=== PATIENT | male | born 1965 | race Two or more races ===

== ENCOUNTER 2023-07-08 11:08 | Inpatient (IN) | payer BC, SELFPAY ==
[2023-07-08] VITALS (26 sets, daily range): BP systolic 101–140; BP diastolic 72–93; PULSE 104–137; RESP 9–28; TEMP 36.7; O2SAT 93–98; BMI 32.4; BMI 33.2
--- NOTE | 2023-07-08 | CONS_ITS ---
CONSULTATION DATE: 07/08/2023 REASON FOR CONSULTATION: Abdominal pain, back pain, cholecystitis. HISTORY OF PRESENT ILLNESS: Patient is a 57-year-old male with history of hypertension, who has had a long, over one year history of intermittent right sided back pain, which has been treated as a musculoskeletal pain. He recently had worsening of the pain as well as some dark urine and presented to the emergency room for further evaluation. He was noted to have sinus tachycardia in the emergency room, as well as a markedly elevated white blood cell count of 25,700. Workup included abdominal and pelvis CT scan, which revealed evidence of multiple gallstones as well as some mild inflammatory changes and distention of the gallbladder. Subsequently, this was followed with an ultrasound that also revealed distention of the gallbladder and some mild inflammation. No pericholecystic fluid or thickening of the gallbladder wall. He did have a large stone in the neck of gallbladder, as well as multiple stones throughout the gallbladder. He denies any history of nausea or fevers. He has had no jaundice or history of pancreatitis. He has had no previous abdominal surgery. He denies alcohol use or tobacco use. ALLERGIES: Patient has no known drug allergies. MEDICATIONS: Home medications include amlodipine 5 mg daily, baclofen 20 mg b.i.d., lidocaine patch, losartan 100 mg daily and naproxen q. 12 hours p.r.n. PAST SURGICAL HISTORY: Patient denies any previous surgical operations. SOCIAL HISTORY: Denies tobacco use, alcohol use or illicit drug use. FAMILY HISTORY: Noncontributory. REVIEW OF SYSTEMS: Ten system review of systems is negative for recent weight loss or weight gain. Denies increased fatigue or light-headedness. Has had no earache or tinnitus. No sinus congestion. No sore throat or hoarseness. No chest pain, palpitations or syncope. No chronic cough, shortness of breath or hemoptysis. No significant abdominal pain. Some soreness in the right upper quadrant is primarily the right back pain. No diarrhea, constipation or decreased caliber of the stool. No melena, hematochezia or bright red blood per rectum. No dysuria, frequency, urgency or hematuria. No headaches, seizures or tremors. No easy bruising or bleeding. No heat or cold intolerance. No polydipsia, polyphagia or polyuria. PHYSICAL EXAM: VITAL SIGNS: Patient is afebrile. Heart rate is 110 and regular. Respiratory rate is 18. O2 saturation is 93% on room air. GENERAL: In general, he is a well developed, well nourished male, currently in acute distress. HEENT: Normocephalic, atraumatic. Sclerae anicteric. Oral mucosa is slightly dry. NECK: Supple. There is no adenopathy, thyromegaly or JVD. LUNGS: Clear bilaterally. CARDIAC EXAM: Regular rhythm and rate without appreciable murmurs, rubs or gallops. ABDOMEN: Soft. It is non-distended. There are positive bowel sounds. There is some mild tenderness in the right upper quadrant with no peritoneal signs. No masses. No hepatosplenomegaly. No hernias. No CVA tenderness. SKIN: Warm and dry without lesions, rashes or ulcers. NEURO EXAM: Non-focal. Non-lateralizing. Patient is awake, alert, oriented with appropriate affect. Laboratory values, CT and ultrasound reports are as noted in the HPI. These images were personally reviewed. ASSESSMENT: A 57-year-old male with a long history of likely symptomatic cholelithiasis, now with evidence of acute cholecystitis with obstruction of the gallbladder from a large stone. PLAN: The plan is to admit the patient, have him on IV antibiotics, bowel rest and proceed with cholecystectomy tomorrow. The indications, risks, benefits, alternatives of proceeding with laparoscopic cholecystectomy were explained extensively to the patient, including the risks of bleeding, infection, bile duct injury, bowel injury, need for intraoperative cholangiogram, postoperative ERCP, open procedure, blood clot, pulmonary embolus, heart attack, anesthetic complications or need for further surgery. All of his questions were answered. Informed consent was obtained. CC: Tino Castro M.D. KRISTI
--- NOTE | 2023-07-08 11:21 | PC.NURSE ---
Pt has had R flank pain into groin last 2 days.
--- NOTE | 2023-07-08 11:24 | ED.BACK1 ---
HPI - Back Pain/Injury General Chief Complaint: Back Pain/Injury Stated Complaint: BACK PAIN Time Seen by Provider: 07/08/23 11:24 Source: patient and family Mode of arrival: walk-in Limitations: no limitations History of Present Illness HPI Narrative: this patient's here for worsening of his right low flank pain. He said he has been bothered with it for the last year. He gets the pain a couple times a month. It's not a every day situation. He's not had any falls injuries or anything that would exacerbate it. But it did get worse last couple days. He saw a local primary care doctor who put him on a muscle relaxant and a Lidoderm patch. He says the pain does not radiate down the buttock or the leg. He has no problems urinating. No frequency burning or hematuria. No history of kidney stones. He's otherwise healthy. The says the pain is in the right low flank area and rotates she's been radiates up to the scapular area. Does not have any shortness of breath. Related Data Allergies Allergy/AdvReac Type Severity Reaction Status Date / Time No Known Drug Allergies Allergy Verified 07/08/23 11:14 [facility] Social History Smoking status: Never smoker Exam Narrative Exam Narrative: very pleasant stoic gentleman moving about comfortably on the cart. While in the standing position examining his back for the area discomfort as he does not any bruises contusions or any other apparent injury. Heath sign is negative. Examination of chest shows his lungs to be clear with no wheezes rales or rhonchi is no tenderness over the ribs. Examination heart sinus tachycardia with no murmur. Examination abdomen shows some mild tenderness in the right upper quadrant but no peritoneal findings. There is no rebound or rigidity. No tenderness at McBurney's point. Legs do not show any evidence of edema phlebitis or deep vein thrombosis. Skin and integument were normal with no evidence of scleral icterus or jaundice. Neurological examination is normal with very pleasant gentleman here with a female content strategist Constitutional Vital Signs, click to edit/add: Last Vital Signs Temp 98.1 F 07/08/23 11:14 Pulse 137 H 07/08/23 11:14 Resp 16 07/08/23 11:14 BP 140/90 07/08/23 11:14 Pulse Ox 97 07/08/23 11:14 O2 Del Method Room Air 07/08/23 11:14 Course Vital Signs Vital signs: Vital Signs Temperature 98.1 F 07/08/23 11:14 Pulse Rate 137 H 07/08/23 11:14 Respiratory Rate 16 07/08/23 11:14 Blood Pressure 140/90 07/08/23 11:14 Pulse Oximetry 97 07/08/23 11:14 Oxygen Delivery Method Room Air 07/08/23 11:14 Temperature 98.1 F 07/08/23 11:14 Pulse Rate 137 H 07/08/23 11:14 Respiratory Rate 16 07/08/23 11:14 Blood Pressure 140/90 07/08/23 11:14 Pulse Oximetry 97 07/08/23 11:14 Oxygen Delivery Method Room Air 07/08/23 11:14 MDM - Back Pain/Injury MDM Narrative Medical decision making narrative: patient's white blood cell call is substantially elevated. CT scan suggested cholecystitis and subsequent ultrasound confirmed mild inflammatory changes but no obstructive mom them. His total bilirubin is normal and there is no elevation of his liver function tests. I spoke with the on-call surgeon who will consult. I'll now speak to the hospitalist for admission. He previously been given 1 g of Rocephin in the emergency departments. Lab Data Labs: Lab Results 07/08/23 07/08/23 Range/Units 11:35 11:51 WBC 25.7 H (4.0-11.0) 10^3/uL RBC 5.62 (4.70-6.10) 10^6/uL Hgb 16.3 (14.0-18.0) g/dL Hct 47.5 (42.0-54.0) % MCV 84.5 (80.0-94.0) fL MCH 29.0 (25.9-34.0) pg MCHC 34.3 (29.9-35.2) g/dL RDW 14.6 (11.0-15.0) % Plt Count 140 L (150-450) 10^3/uL MPV 12.2 (9.5-13.5) fL Seg Neuts % (Manual) 91.0 Lymphocytes % (Manual) 3.0 L (20.5-60.0) % Monocytes % (Manual) 6.0 (1.7-12.0) % Neutrophils # (Manual) 23.38 H (1.4-6.5) 10^3/uL Lymphocytes # (Manual) 0.77 L (1.20-3.80) 10^3/uL Monocytes # (Manual) 1.54 H (0.30-0.80) 10^3/uL D-Dimer 0.44 (<=0.59) mg/L FEU Sodium 137 (136-145) mmol/L Potassium 3.6 (3.5-5.1) mmol/L Chloride 103 (98-107) mmol/L Carbon Dioxide 30.6 (21.0-32.0) mmol/L Anion Gap 7.0 BUN 14.0 (7.0-18.0) mg/dL Creatinine 1.07 (0.70-1.30) mg/dL Est GFR ( Amer) >60 (>=60) Est GFR (Non-Af Amer) >60 (>=60) BUN/Creatinine Ratio 13.1 Glucose 115 H (74-106) mg/dL Calcium 9.2 (8.5-10.1) mg/dL Total Bilirubin 1.2 H (0.2-1.0) mg/dL AST 13 L (15-37) U/L ALT 36 (16-63) U/L Alkaline Phosphatase 101 (46-116) U/L Troponin I High Sens 24.1 (4.0-76.1) pg/mL NT-Pro-B Natriuret Pep 25.0 (<=900.0) pg/mL Total Protein 7.5 (6.4-8.2) g/dL Albumin 3.8 (3.4-5.0) g/dL Globulin 3.7 g/dL Albumin/Globulin Ratio 1.0 Urine Color Yellow (YELLOW) Urine Clarity Clear (CLEAR) Urine pH 6.5 (5.0-9.0) Ur Specific [place] 1.020 (1.005-1.025) Urine Protein Trace (NEG/TRACE) mg/dL Urine Glucose (UA) Negative (NEGATIVE) mg/dL Urine Ketones Negative (NEGATIVE) mg/dL Urine Occult Blood Negative (NEGATIVE) Urine Nitrite Negative (NEGATIVE) Urine Bilirubin Negative (NEGATIVE) Urine Urobilinogen 1.0 (0.2-1.0) EU/dL Ur Leukocyte Esterase Negative (NEGATIVE) Discharge Plan Discharge Chief Complaint: Back Pain/Injury Clinical Impression: Acalculous cholecystitis Patient Disposition: Admitted as Observation Time of Disposition Decision: 14:23 Referrals: RYLIE MEYER APRN [Primary Care Provider] - 1 week
--- NOTE | 2023-07-08 11:29 | CT_ITS ---
[address] [address] Patient Name: EFRA HOUSE MRN: [id number] date: 1965 Sex: M Assigned Patient Location: ER Current Patient Location: Accession/Order Number: [id number] Exam Date: 07/08/2023 11:40 Report Date: 07/08/2023 12:05 At the request of: EDY PLASCENCIA Procedure: CT abdomen pelvis wo con EXAMINATION: CT abdomen pelvis wo con HISTORY: right flank pain ; increasing right flank and right upper quadrant pain COMPARISON: No relevant comparison available. TECHNIQUE: Axial, Coronal, and Sagittal images were obtained without and/or with IV contrast as indicated by examination type. Dose reduction techniques were achieved by using automated exposure control and/or adjustment of mA and/or kV according to patient size and/or use of iterative reconstruction technique. FINDINGS: LUNG BASES: No visible pulmonary or pleural disease. LIVER: No enlargement, atrophy, suspicious density, or significant focal lesion. BILIARY: Gallbladder is filled with stones, with a 2.1 cm stone within gallbladder neck. Borderline wall thickening and surrounding edema. No abnormal duct dilation. PANCREAS: No lesion, fluid collection, or abnormal duct dilatation. SPLEEN: No enlargement or focal lesion. ADRENALS: No mass or enlargement. KIDNEYS: 2.6 cm complex cyst versus mass projecting laterally from mid body of right kidney. BOWEL/MESENTERY: No visible mass, obstruction, or bowel wall thickening. Normal appendix. AORTA/VASCULAR: No aneurysm or dissection. RETROPERITONEUM: No mass or adenopathy. LYMPH NODES: No adenopathy. URINARY BLADDER: No visible focal wall thickening, lesion, or calculus. PELVIC ORGANS: No visible mass. Pelvic organs appropriate for patient age. ABDOMINAL WALL: Tiny fat filled umbilical hernia without strangulation. BONES: No bony lesion or fracture. OTHER: Negative. CT/CT abdomen pelvis wo con IMPRESSION: 1. Cholelithiasis and suspected mild acute cholecystitis. Consider ultrasound evaluation for verification. 2. Complex 2.6 cm right renal cyst versus mass. Consider follow-up CT abdomen without and with IV contrast to evaluate enhancement characteristics. Alternatively, MRI abdomen could be performed. Electronically authenticated by: MIRTHA MELARA Date: 07/08/2023 12:05
--- NOTE | 2023-07-08 11:58 | XR_ITS ---
The [address] [address] Patient Name: EFRA HOUSE MRN: [id number] date: 1965 Sex: M Assigned Patient Location: ER Current Patient Location: ER Accession/Order Number: [id number] Exam Date: 07/08/2023 12:06 Report Date: 07/08/2023 12:22 At the request of: EDY PLASCENCIA Procedure: XR chest 1V EXAM: XR chest 1V at 1201 hours HISTORY: dyspnea COMPARISON: None. TECHNIQUE: AP upright portable chest x-ray FINDINGS: The heart is near the upper limits of normal in size and the vasculature is not distended. No acute infiltrate, effusion or pneumothorax is identified. The osseous structures are grossly intact. XR/XR chest 1V IMPRESSION: No acute infiltrate or evidence of cardiac decompensation. Direct comparison with a previous study may be helpful in determining the chronicity of these findings. Electronically authenticated by: NANCIE JORDAN Date: 07/08/2023 12:22
--- NOTE | 2023-07-08 11:58 | ECG_ITS ---
The [facility] [place] Test Date: 2023-07-08 Pat Name: EFRA HOUSE Department: Room: - Gender: Male Facilities Engineer: : 1965 Requested By: RYLIE MEYER Order Number: [id number] Reading MD: SPIKE JARA Measurements Intervals [place] Rate: 117 P: 35 NM: 136 QRS: 15 QRSD: 98 T: 0 QT: 318 QTc: 387 Interpretive Statements 1120 Sinus tachycardia 5234 Left ventricular hypertrophy with repolarization abnormality ST changes, can't exclude inferolateral ischemia 9150 abnormal ECG No previous ECG available for comparison Electronically Signed On 07-09-2023 7:02:58 EST by SPIKE JARA
[2023-07-08 12:00] LABS: Bilirubin Urine NEGATIVE (NEGATIVE); Blood Urine NEGATIVE (NEGATIVE); Clarity Urine CLEAR (CLEAR); Color Urine YELLOW (YELLOW); Glucose Urine UA NEGATIVE (NEGATIVE); Ketones Urine NEGATIVE (NEGATIVE); Leukocyte Esterase Urine NEGATIVE (NEGATIVE); Nitrite Urine NEGATIVE (NEGATIVE); Protein Urine TRACE mg/dL (NEG/TRACE); pH Urine 6.5 (5.0-9.0)
[2023-07-08 12:07] LABS: Urine Microscopic Indicated NO
[2023-07-08 12:12] LABS: Alanine Aminotransferase 36 U/L (16-63); Albumin Level 3.8 g/dL (3.4-5.0); Alkaline Phosphatase 101 U/L (46-116); Aspartate Amino Transferase 13 U/L (15-37); BUN Creatinine Ratio 13.1; Bilirubin Total 1.2 mg/dL (0.2-1.0); Calcium 9.2 mg/dL (8.5-10.1); Carbon Dioxide 30.6 mmol/L (21.0-32.0); Chloride 103 mmol/L (98-107); Estimated GFR (African America >60 (>=60); Estimated GFR (Non-African Ame >60 (>=60); Globulin 3.7 g/dL; Glucose 115 mg/dL (74-106); Potassium 3.6 mmol/L (3.5-5.1); Sodium 137 mmol/L (136-145); Total Protein 7.5 g/dL (6.4-8.2)
[2023-07-08 12:19] LABS: Hematocrit 47.5 % (42.0-54.0); Hemoglobin 16.3 g/dL (14.0-18.0); Mean Corpuscular HGB Conc 34.3 g/dL (29.9-35.2); Mean Corpuscular Volume 84.5 fL (80.0-94.0); Mean Platelet Volume 12.2 fL (9.5-13.5); Platelet Count 140 10^3/uL (150-450); Red Blood Count 5.62 10^6/uL (4.70-6.10); Red Cell Distribution Width 14.6 % (11.0-15.0); White Blood Count 25.7 10^3/uL (4.0-11.0)
[2023-07-08 12:20] LABS: Troponin I High Sensitivity 24.1 pg/mL (4.0-76.1)
[2023-07-08 12:22] LABS: D Dimer 0.44 mg/L FEU (<=0.59)
[2023-07-08 12:31] LABS: Lymphocytes Absolute Manual 0.77 10^3/uL (1.20-3.80); Monocytes Absolute Manual 1.54 10^3/uL (0.30-0.80); Segmented Neut Absolute Manual 23.38 10^3/uL (1.4-6.5)
--- NOTE | 2023-07-08 12:44 | US_ITS ---
The [address] [address] Patient Name: EFRA HOUSE MRN: [id number] date: 1965 Sex: M Assigned Patient Location: ER Current Patient Location: ER Accession/Order Number: [id number] Exam Date: 07/08/2023 12:46 Report Date: 07/08/2023 13:43 At the request of: EDY PLASCENCIA Procedure: US right upper quadrant EXAMINATION: US right upper quadrant, 07/08/2023 12:46 PM EST HISTORY: high white blood cell count right upper quadrant p COMPARISON: 07/08/2023 TECHNIQUE: Transabdominal sonography was performed. FINDINGS: Pancreas: Head and body of the pancreas are moderately well seen and appear grossly normal. Tail of the pancreas is obscured due to overlying bowel gas. Liver: Normal size and contour, length approximately 17.2 cm. Increased parenchymal echogenicity likely relates to steatosis in the absence of known liver disease; mild fatty sparing along the gallbladder fossa. Hepatic veins are grossly patent by limited color flow imaging; main portal vein appears patent with normal flow directionality, velocity approximately 39.9 cm/s. Gallbladder: Cholelithiasis and mild gallbladder distention, without significant gallbladder wall thickening; mild pericholecystic inflammation is better appreciated on CT 07/08/2023; no significant pericholecystic fluid. Stone seen in the neck measures approximately 9 mm in greatest diameter. Reportedly negative sonographic [place] sign. Intrahepatic ducts: Normal caliber. Common bile duct: Normal, measures 3 mm. Right kidney: 10.6 x 5.4 x 5.6 cm The kidney is reniform in shape, normal in echotexture, without hydronephrosis. There is a 1.9 x 2.2 x 2.1 cm predominantly cystic cortical lesion about the superior pole right kidney containing a nonspecific focus of intracystic nodularity (image [id number]). IVC: Patent. US/US right upper quadrant IMPRESSION: 1. Cholelithiasis and mild gallbladder distention; while there is no significant gallbladder wall thickening, mild pericholecystic inflammation as seen on recent CT is suspicious for acute cholecystitis. No abnormal biliary dilatation. 2. Right renal cortical lesion contains a nonspecific focus of intracystic nodularity; unclear if this relates to intracystic proteinaceous debris. As per CT exam performed same day, consider follow-up renal mass protocol CT or MRI. 3. Hepatic steatosis. Electronically authenticated by: JUAN PABLO FERRO Date: 07/08/2023 13:43
[2023-07-08] MEDS: CEFTRIAXONE 1,000 MG in 0.9 % SODIUM CHLORIDE 50 ML 100 MG IV (13:28)
--- NOTE | 2023-07-08 17:07 | PC.NURSE ---
dr sailaja singh for consult at this time.
[2023-07-08 17:26] LABS: INR 0.98; Partial Thromboplastin Time 29.6 sec (22.3-36.2); Prothrombin Time 10.4 sec (9.0-11.6)
[2023-07-08 17:30] LABS: Magnesium 1.9 mg/dL (1.8-2.4)
[2023-07-08] MEDS: 0.9 % SODIUM CHLORIDE 1,000 ML 1000 ML IV (17:32)
[2023-07-08] MEDS: PANTOPRAZOLE SODIUM 40 MG VIAL IV (17:35)
--- NOTE | 2023-07-08 17:36 | PM.GSCN ---
History of Present Illness Consult details Consult date: 07/08/23 Requesting physician: Tino Castro Narrative: patient seen/examined/cart and x-ray images reviewed/consult dictated; 57 yo male with htn, long h/o likely biliary colic, now with evidence of cholecystitis, large stone in neck of gallbladder, with distension of GB and inflammation; plan NPO, hydration, IV antibiotics, pain meds as needed; LS cholecystectomy, possible IOC, possible open procedure tomorrow, informed consent obtained. 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) Anxiety ?F41.9 - Anxiety disorder, unspecified (ICD-10) Hypertension ?I10 - Essential (primary) hypertension (ICD-10) Family History (Updated 07/08/23 @ 15:20 by Jael Puga LPN) Father Family history of CHF (congestive heart failure) Family history of diabetes mellitus Family history of hypertension Family history of myocardial infarction Granddaughter Family history of CHF (congestive heart failure) Family history of hypertension Grandmother Family history of cancer Sister Family history of cancer Family history of diabetes mellitus Family history of hypertension Other Family history of COPD (chronic obstructive pulmonary disease) Social History Smoking status: Never smoker Highest level of school completed/degree received: Associate degree: occupational, technical, vocational program Gender Identity: male Meds Home Medications and Allergies Home Medications Medication Instructions Recorded Confirmed Type amlodipine 5 mg tablet 5 mg PO DAILY 07/08/23 07/08/23 History baclofen 20 mg tablet 20 mg PO BID 07/08/23 07/08/23 History lidocaine 5 % topical patch 1 patch topical Q24H PRN pain 07/08/23 07/08/23 History losartan 100 mg tablet 100 mg PO DAILY 07/08/23 07/08/23 History naproxen 500 mg tablet 500 mg PO Q12H PRN pain 07/08/23 07/08/23 History Allergies Allergy/AdvReac Type Severity Reaction Status Date / Time No Known Drug Allergies Allergy Verified 07/08/23 11:14 Exam Constitutional Vital Signs, click to edit/add: Last Vital Signs Temp 98.0 F 07/08/23 15:35 Pulse 110 H 07/08/23 15:35 Resp 16 07/08/23 15:35 BP 134/87 07/08/23 15:35 Pulse Ox 93 L 07/08/23 16:27 O2 Del Method Room Air 07/08/23 16:42 Results Labs Labs: Abnormal lab results 07/08/23 Range/Units 11:51 WBC 25.7 H (4.0-11.0) 10^3/uL Plt Count 140 L (150-450) 10^3/uL Lymphocytes % (Manual) 3.0 L (20.5-60.0) % Neutrophils # (Manual) 23.38 H (1.4-6.5) 10^3/uL Lymphocytes # (Manual) 0.77 L (1.20-3.80) 10^3/uL Monocytes # (Manual) 1.54 H (0.30-0.80) 10^3/uL Glucose 115 H (74-106) mg/dL Total Bilirubin 1.2 H (0.2-1.0) mg/dL AST 13 L (15-37) U/L Diabetes panel 07/08/23 Range/Units 11:51 Sodium 137 (136-145) mmol/L Potassium 3.6 (3.5-5.1) mmol/L Chloride 103 (98-107) mmol/L Carbon Dioxide 30.6 (21.0-32.0) mmol/L BUN 14.0 (7.0-18.0) mg/dL Creatinine 1.07 (0.70-1.30) mg/dL Glucose 115 H (74-106) mg/dL Calcium 9.2 (8.5-10.1) mg/dL AST 13 L (15-37) U/L ALT 36 (16-63) U/L Alkaline Phosphatase 101 (46-116) U/L Total Protein 7.5 (6.4-8.2) g/dL Albumin 3.8 (3.4-5.0) g/dL Calcium panel 07/08/23 Range/Units 11:51 Calcium 9.2 (8.5-10.1) mg/dL Albumin 3.8 (3.4-5.0) g/dL Pituitary panel 07/08/23 Range/Units 11:51 Sodium 137 (136-145) mmol/L Potassium 3.6 (3.5-5.1) mmol/L Chloride 103 (98-107) mmol/L Carbon Dioxide 30.6 (21.0-32.0) mmol/L BUN 14.0 (7.0-18.0) mg/dL Creatinine 1.07 (0.70-1.30) mg/dL Glucose 115 H (74-106) mg/dL Calcium 9.2 (8.5-10.1) mg/dL Adrenal panel 07/08/23 Range/Units 11:51 Sodium 137 (136-145) mmol/L Potassium 3.6 (3.5-5.1) mmol/L Chloride 103 (98-107) mmol/L Carbon Dioxide 30.6 (21.0-32.0) mmol/L BUN 14.0 (7.0-18.0) mg/dL Creatinine 1.07 (0.70-1.30) mg/dL Glucose 115 H (74-106) mg/dL Calcium 9.2 (8.5-10.1) mg/dL Total Bilirubin 1.2 H (0.2-1.0) mg/dL AST 13 L (15-37) U/L ALT 36 (16-63) U/L Alkaline Phosphatase 101 (46-116) U/L Total Protein 7.5 (6.4-8.2) g/dL Albumin 3.8 (3.4-5.0) g/dL All other labs normal.
[2023-07-08 17:40] LABS: Lactate/Lactic Acid 1.3 mmol/L (0.4-2.0)
[2023-07-08] MEDS: LACTATED RINGER'S SOLUTION 1,000 ML 100 ML IV (18:42)
[2023-07-08] MEDS: AMPICILLIN SODIUM/SULBACTAM NA 3 GM in 0.9 % SODIUM CHLORIDE 100 ML IV ×2 (18:42→23:22)
--- NOTE | 2023-07-08 19:03 | P.HP_ITS ---
H&P: HPI History of Present Illness Chief complaint: BACK PAIN Cholecystitis Narrative: Patient had increasing abdominal pain, right upper quadrant, intermittent since the summertime. Pain worsened and presented to the emergency room. Found to have acute cholecystitis and will be admitted for workup and treatment of same only real medical problems in the past as high blood pressure. Was recently treated with muscle lectures for back pain but this is likely his pancreatitis. 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) Anxiety ?F41.9 - Anxiety disorder, unspecified (ICD-10) Hypertension ?I10 - Essential (primary) hypertension (ICD-10) Family History (Updated 07/08/23 @ 15:20 by Jael Puga LPN) Father Family history of CHF (congestive heart failure) Family history of diabetes mellitus Family history of hypertension Family history of myocardial infarction Granddaughter Family history of CHF (congestive heart failure) Family history of hypertension Grandmother Family history of cancer Sister Family history of cancer Family history of diabetes mellitus Family history of hypertension Other Family history of COPD (chronic obstructive pulmonary disease) Social History Smoking status: Never smoker Highest level of school completed/degree received: Associate degree: occupational, technical, vocational program Gender Identity: male Meds Home Medications and Allergies Home Medications Medication Instructions Recorded Confirmed Type amlodipine 5 mg tablet 5 mg PO DAILY 07/08/23 07/08/23 History baclofen 20 mg tablet 20 mg PO BID 07/08/23 07/08/23 History lidocaine 5 % topical patch 1 patch topical Q24H PRN pain 07/08/23 07/08/23 History losartan 100 mg tablet 100 mg PO DAILY 07/08/23 07/08/23 History naproxen 500 mg tablet 500 mg PO Q12H PRN pain 07/08/23 07/08/23 History Allergies Allergy/AdvReac Type Severity Reaction Status Date / Time No Known Drug Allergies Allergy Verified 07/08/23 11:14 Exam Constitutional Vital Signs, click to edit/add: Last Vital Signs Temp 98.0 F 07/08/23 15:35 Pulse 116 H 07/08/23 18:00 Resp 16 07/08/23 15:35 BP 134/87 07/08/23 15:35 Pulse Ox 93 L 07/08/23 16:27 O2 Del Method Room Air 07/08/23 16:42 Documenting provider has reviewed patient's vital signs: yes Common normals: no apparent distress Chest Common normals: inspection of chest normal Respiratory Common normals: normal respiratory effort Cardio Common normals: regular rate and regular rhythm GI Common normals: Normal to inspection, nondistended, normoactive bowel sounds present Results Labs Labs: Short CBC 07/08/23 Range/Units 11:51 WBC 25.7 H (4.0-11.0) 10^3/uL Hgb 16.3 (14.0-18.0) g/dL Hct 47.5 (42.0-54.0) % Plt Count 140 L (150-450) 10^3/uL BMP 07/08/23 11:51 Sodium 137 Potassium 3.6 Chloride 103 Carbon Dioxide 30.6 BUN 14.0 Creatinine 1.07 Glucose 115 H Calcium 9.2 Liver Function 07/08/23 Range/Units 11:51 Total Bilirubin 1.2 H (0.2-1.0) mg/dL AST 13 L (15-37) U/L ALT 36 (16-63) U/L Alkaline Phosphatase 101 (46-116) U/L Albumin 3.8 (3.4-5.0) g/dL Urine 07/08/23 Range/Units 11:35 Urine Color Yellow (YELLOW) Urine Clarity Clear (CLEAR) Urine pH 6.5 (5.0-9.0) Ur Specific [place] 1.020 (1.005-1.025) Urine Protein Trace (NEG/TRACE) mg/dL Urine Glucose (UA) Negative (NEGATIVE) mg/dL Assessment and Plan Assessment and Plan (1) Acalculous cholecystitis: Plan Sinus tachycardia, leukocytosis, thrombocytopenia, [place] mild hyperbilirubinemia secondary to acute cholecystitis-consult to surgery, start IV antibiotics, n.p.o. Will give fluid bolus for tachycardia. Check a lactate level. Hypertension-continue with home medications.
[2023-07-08] MEDS: LEVOFLOXACIN IN DEXTROSE 5 % 750 MG/150 ML IV.SOLN 100 MG IV (19:22)
[2023-07-09] VITALS (63 sets, daily range): BP systolic 106–132; BP diastolic 75–84; PULSE 79–123; RESP 15–25; TEMP 36.4–37.4; O2SAT 91–94
--- NOTE | 2023-07-09 | OP_ITS ---
OPERATION DATE: 07/09/2023 PREOPERATIVE DIAGNOSIS: Acute cholecystitis. POSTOPERATIVE DIAGNOSIS: Acute hemorrhagic, gangrenous cholecystitis with obstruction of the gallbladder. PROCEDURE: Laparoscopic cholecystectomy. SURGEON: Wil Eddy M.D. ANESTHESIA: General endotracheal. ESTIMATED BLOOD LOSS: Less than 30 mL. INDICATIONS AND CONSENT: Patient is a 57-year-old male with a long history of intermittent right back pain. Recently had worsening symptoms and workup in the emergency room revealed evidence of acute cholecystitis with a dilated, distended gallbladder with a stone impacted in the neck of the gallbladder. He also had leukocytosis and tachycardia. He was admitted, hydrated, given IV antibiotics and not presents for cholecystectomy. Indications, risks, benefits, alternatives of proceeding with laparoscopic cholecystectomy were explained extensively to the patient, including risks of bleeding, infection, bile duct injury, bowel injury, need for intraoperative cholangiogram, postoperative ERCP, open procedure, blood clot, pulmonary embolus, heart attack, anesthetic complications or need for further surgery. All of his questions were answered. Informed consent was obtained. PROCEDURE: Patient was brought to the operating room, placed in the supine position. General anesthesia was induced. He was prepped and draped in the usual sterile fashion. A supraumbilical incision was made with the scalpel blade and carried down through subcutaneous tissue using sharp dissection and blunt dissection. The fascia was grasped and incised. Two 0 Vicryl stay sutures placed in either side of the midline fascia. The Shaver trocar was then inserted and secured using the stay sutures. The abdomen was then insufflated with carbon dioxide to a pressure of 15 mm/Hg. The scope was then inserted and the upper abdomen was visualized. The patient was placed in reverse Trendelenburg position with the right side up. Three 5 mm ports were then placed; one in the subxiphoid area and two in the right subcostal area, all under direct visualization. Gallbladder was markedly distended. There was omentum covering it, which was freed up. There were noted to be hemorrhagic, gangrenous changes in a very tense gallbladder. This was aspirated with an aspirating needle that was then able to be grasped with an atraumatic grasper at the fundus and retracted cephalad and to the patient?s right. There were numerous adhesions to the infundibulum that were taken down using blunt and sharp dissection. The infundibulum was then able to be grasped and retracted laterally and inferiorly. Dissection was begun just below the infundibulum, where there were marked inflammatory changes and edema. The cystic duct and cystic artery were carefully dissected out. There were noted to be some posterior branches of the artery. The infundibulum was completed freed up so that the critical view of safety could be obtained. The cystic duct was then clipped with two Hem-O-Cristel clips proximally towards the common duct and one distally towards the gallbladder. The artery branches were controlled with regular clips, and the main cystic artery was controlled with the Hem-O-Cristel clip and then a regular clip proximally towards the gallbladder. These were then divided. The gallbladder was then taken down from the liver bed using electrocautery. There were acute and chronic inflammatory changes noted. Once the gallbladder was completely removed, it was brought out in an Endocatch bag through the umbilical port site, which had to be enlarged to accommodate the stones. Once this was done, the abdomen was re-insufflated. The upper abdomen was then copiously irrigated. There was good hemostasis. There was some oozing from the liver bed but no significant bleeding or bile leak. A 15 round J-P drain was then placed through the lateral port site and secured to the skin using a 3-0 nylon suture. It was placed to closed bulb suction. The abdomen was irrigated until clear. The patient was then placed back in the supine position. The ports were removed und direct visualization. There was good hemostasis. The umbilical port site fascia was then closed with a 0 Vicryl figure of eight suture. All port sites were infiltrated with 0.5% Marcaine. The skin was then closed with interrupted 4-0 subcuticular Monocryl sutures and skin glue. Sterile dressings were applied as well as Medipore tape. Sponge and needle counts were correct x3 per nursing personnel. Patient tolerated procedure well, was extubated and sent to recovery room in good condition. CC: Patient?s family physician KRISTI
[2023-07-09] MEDS: AMPICILLIN SODIUM/SULBACTAM NA 3 GM in 0.9 % SODIUM CHLORIDE 100 ML IV (05:04)
[2023-07-09] MEDS: LACTATED RINGER'S SOLUTION 1,000 ML 100 ML IV (05:04)
[2023-07-09 05:06] LABS: Amylase 49 U/L (25-115); Basophils Percent Auto 0.2 % (0.2-2.0); Hematocrit 42.1 % (42.0-54.0); Hemoglobin 14.1 g/dL (14.0-18.0); Immature Granulocytes Abs Auto 0.17 10^3/uL (0.00-0.03); Immature Granulocytes Pct Auto 0.8 % (0.0-0.5); Lymphocytes Absolute Auto 0.8 10^3/uL (1.2-3.8); Lymphocytes Percent Auto 3.7 % (20.5-60.0); Mean Corpuscular HGB Conc 33.5 g/dL (29.9-35.2); Mean Corpuscular Hemoglobin 28.7 pg (25.9-34.0); Mean Corpuscular Volume 85.6 fL (80.0-94.0); Mean Platelet Volume 12.3 fL (9.5-13.5); Monocytes Absolute Auto 1.2 10^3/uL (0.3-0.8); Monocytes Percent Auto 5.4 % (1.7-12.0); Neutrophils Absolute Auto 19.5 10^3/uL (1.4-6.5); Neutrophils Percent Auto 89.9 % (43.0-75.0); Platelet Count 117 10^3/uL (150-450); Red Blood Count 4.92 10^6/uL (4.70-6.10); Red Cell Distribution Width 14.7 % (11.0-15.0); White Blood Count 21.7 10^3/uL (4.0-11.0)
[2023-07-09 05:10] LABS: Alanine Aminotransferase 25 U/L (16-63); Albumin Globulin Ratio 0.8; Albumin Level 2.8 g/dL (3.4-5.0); Alkaline Phosphatase 76 U/L (46-116); Anion Gap 5.8; Aspartate Amino Transferase 8 U/L (15-37); BUN Creatinine Ratio 12.9; Bilirubin Total 1.2 mg/dL (0.2-1.0); Calcium 8.8 mg/dL (8.5-10.1); Carbon Dioxide 28.4 mmol/L (21.0-32.0); Chloride 100 mmol/L (98-107); Estimated GFR (African America >60 (>=60); Estimated GFR (Non-African Ame >60 (>=60); Globulin 3.4 g/dL; Glucose 100 mg/dL (74-106); Potassium 3.2 mmol/L (3.5-5.1); Sodium 131 mmol/L (136-145); Total Protein 6.2 g/dL (6.4-8.2)
--- NOTE | 2023-07-09 08:09 | P.PN_ITS ---
<Statement entered by Tino Castro MD - 07/10/23 12:13> agreee wiuht iunpout and finding Frm N) including ab regiment. P{romulo persurgery This documentation has been reviewed and approved. Progress Note: Subjective Subjective Interval history: 07/09/23 0810 The pt is resting in bed visiting with his family. He reports persistent mild to moderate RUQ/R flank pain, but states it is tolerable. He c/o dry mouth while NPO but otherwise denies any other complaints. He is relieved that he finally has a diagnosis for his intermittent abdominal/flank pain. OR per general surgery service is planned for 1500 today. His tachycardia persists despite adequate IVF hydration. We will increase his IVF rate to 125 in the pre-op period. Leukocytosis remains markedly elevated, although mildly improved, but he remains afebrile and with a normal lactic acid. Exam Constitutional Vital Signs, click to edit/add: Last Vital Signs Temp 98.0 F 07/09/23 05:01 Pulse 100 H 07/09/23 08:00 Resp 18 07/09/23 05:01 BP 130/83 07/09/23 05:01 Pulse Ox 94 L 07/09/23 05:01 O2 Del Method Room Air 07/09/23 05:01 Common normals: no apparent distress, oriented x3 and alert General appearance: cooperative Orientation/consciousness: Yes awake HENNV Common normals: normocephalic, head/scalp atraumatic and hearing grossly normal bilaterally Eye Common normals: PERRL, EOMs intact bilaterally, conjunctivae normal and no scleral icterus General eye: normal appearance of both eyes Chest Common normals: inspection of chest normal Chest: symmetrical chest wall rise Respiratory Common normals: normal respiratory effort, no use of accessory muscles and clear to auscultation bilaterally Effort & inspection: able to speak in complete sentences Cardio Common normals: regular rhythm, S1 normal heart sound, S2 normal heart sound, no murmurs and peripheral pulses 2+ throughout Rate: tachycardic GI Common normals: Normal to inspection, nondistended, normoactive bowel sounds present, soft to palpation and no hepatosplenomegaly Palpation: tender (Greatest at RUQ) Details: RLQ, RUQ and other (R flank); no guarding, not rigid and no rebound tenderness present Bladder/kidney exam: bladder normal to palpation Extremity Common normals: normal to inspection and no calf tenderness General: no clubbing, no cyanosis and no edema Neuro Common normals: CN's II-XII intact bilaterally, moves all extremities, no focal motor deficits and no sensory deficits noted Psych Common normals: mental status grossly normal Progress Note: Objective Labs Labs: Short CBC 07/08/23 07/09/23 Range/Units 11:51 04:20 WBC 25.7 H 21.7 H (4.0-11.0) 10^3/uL Hgb 16.3 14.1 (14.0-18.0) g/dL Hct 47.5 42.1 (42.0-54.0) % Plt Count 140 L 117 L (150-450) 10^3/uL BMP 07/08/23 07/09/23 11:51 04:20 Sodium 137 131 L Potassium 3.6 3.2 L Chloride 103 100 Carbon Dioxide 30.6 28.4 BUN 14.0 12.0 Creatinine 1.07 0.93 Glucose 115 H 100 Calcium 9.2 8.8 Liver Function 07/08/23 07/09/23 Range/Units 11:51 04:20 Total Bilirubin 1.2 H 1.2 H (0.2-1.0) mg/dL AST 13 L 8 L (15-37) U/L ALT 36 25 (16-63) U/L Alkaline Phosphatase 101 76 (46-116) U/L Albumin 3.8 2.8 L (3.4-5.0) g/dL Urine 07/08/23 Range/Units 11:35 Urine Color Yellow (YELLOW) Urine Clarity Clear (CLEAR) Urine pH 6.5 (5.0-9.0) Ur Specific [place] 1.020 (1.005-1.025) Urine Protein Trace (NEG/TRACE) mg/dL Urine Glucose (UA) Negative (NEGATIVE) mg/dL Progress Note: A&P Assessment and Plan (1) Acalculous cholecystitis: Assessment and Plan: ACUTE * Large cholelithiasis obstructing GB neck * C/S General Surgery - we appreciate Dr Eddy's assistance with this pt's care * NPO * OR planned for 1500 today for cholecystectomy, possible open procedure * Continue IVP MS for pain * Increase IVF rate to 125/hr today * Change ABX coverage to Zosyn for improved below diaphragm anaerobic coverage in setting of persistent leukocytosis * Likely d/c ABX 24 hrs post op as source of infection will be definitively addressed by surgical intervention * Blood cultures still pending * Daily CBC, CMP (2) Tachycardia: Assessment and Plan: ACUTE * Improving - HR 100-110 over the last 12 hrs. Down from 130 on arrival to ED * Persists despite adequate IVF bolus and maintenance IVFs overnight * Increase IVF rate to 125/hr in preop period * Suspect 2/2 dehydration/infection. * At risk for sepsis but afebrile and normal lactic. * Monitor VS closely * Cardiac enzymes, magnesium WNL * Tele monitoring (3) Hyponatremia: Assessment and Plan: ACUTE * Likely 2/2 hemodilution w/ LR IVFs overnight. Dehydration also possible etiology * Change IVF to NS from LR * CMP daily (4) Hypokalemia: Assessment and Plan: ACUTE * Suspect hemodilution and poor oral intake * Replete with KCL 40 meq IVPB * CMP daily (5) Hyperbilirubinemia: Assessment and Plan: ACUTE * Mild * Suspect 2/2 acute cholecystitis * Monitor w/ daily CMP (6) Thrombocytopenia: Assessment and Plan: ACUTE * Moderate * Unclear etiology * Monitor w/ CBC daily (7) Hypertension: Assessment and Plan: CHRONIC * Continue home amlodipine and losartan w/ sips of water * PRN hydralazine IVP for uncontrolled HTN
--- NOTE | 2023-07-09 09:43 | CM.NOTE ---
Rounds made with Dr. Castro pt to go to OR today at 3:00 per nursing.
[2023-07-09] MEDS: PIPERACILLIN SODIUM/TAZOBACTAM 3.375 GM in 0.9 % SODIUM CHLORIDE 50 ML IV ×2 (09:48→19:28)
[2023-07-09] MEDS: 0.9 % SODIUM CHLORIDE 1,000 ML 125 ML IV ×2 (09:49→22:07)
[2023-07-09] MEDS: POTASSIUM CHLORIDE 40 MEQ in 0.9 % SODIUM CHLORIDE 250 ML 67.5 MEQ IV (09:49)
[2023-07-09] MEDS: LACTATED RINGER'S SOLUTION 1,000 ML 50 ML IV (15:43)
[2023-07-09] MEDS: BUPIVACAINE HCL 0.5% PF 50 MG/10 ML VIAL 20 ML INJ (17:45)
[2023-07-09] MEDS: PANTOPRAZOLE SODIUM 40 MG VIAL IV (19:27)
[2023-07-09] MEDS: KETOROLAC TROMETHAMINE 30 MG/ML VIAL IVP (19:27)
[2023-07-10] VITALS (11 sets, daily range): BP systolic 117–125; BP diastolic 76–77; PULSE 71–103; RESP 18; TEMP 36.4; O2SAT 94–95
[2023-07-10] MEDS: PIPERACILLIN SODIUM/TAZOBACTAM 3.375 GM in 0.9 % SODIUM CHLORIDE 50 ML IV ×2 (02:24→11:09)
[2023-07-10 05:14] LABS: Basophils Percent Auto 0.1 % (0.2-2.0); Hematocrit 40.7 % (42.0-54.0); Hemoglobin 13.4 g/dL (14.0-18.0); Immature Granulocytes Pct Auto 0.6 % (0.0-0.5); Lymphocytes Absolute Auto 0.5 10^3/uL (1.2-3.8); Lymphocytes Percent Auto 2.5 % (20.5-60.0); Mean Corpuscular HGB Conc 32.9 g/dL (29.9-35.2); Mean Corpuscular Hemoglobin 28.6 pg (25.9-34.0); Mean Corpuscular Volume 86.8 fL (80.0-94.0); Mean Platelet Volume 12.2 fL (9.5-13.5); Monocytes Absolute Auto 0.5 10^3/uL (0.3-0.8); Monocytes Percent Auto 2.7 % (1.7-12.0); Neutrophils Absolute Auto 16.8 10^3/uL (1.4-6.5); Neutrophils Percent Auto 94.1 % (43.0-75.0); Platelet Count 123 10^3/uL (150-450); Red Blood Count 4.69 10^6/uL (4.70-6.10); White Blood Count 17.9 10^3/uL (4.0-11.0)
[2023-07-10 05:26] LABS: Amylase 46 U/L (25-115)
[2023-07-10 05:31] LABS: Alanine Aminotransferase 42 U/L (16-63); Albumin Globulin Ratio 0.7; Albumin Level 2.5 g/dL (3.4-5.0); Alkaline Phosphatase 77 U/L (46-116); Anion Gap 8.4; Aspartate Amino Transferase 28 U/L (15-37); BUN Creatinine Ratio 11.2; Calcium 8.5 mg/dL (8.5-10.1); Carbon Dioxide 28.3 mmol/L (21.0-32.0); Chloride 107 mmol/L (98-107); Estimated GFR (African America >60 (>=60); Estimated GFR (Non-African Ame >60 (>=60); Globulin 3.6 g/dL; Glucose 131 mg/dL (74-106); Potassium 3.7 mmol/L (3.5-5.1); Sodium 140 mmol/L (136-145); Total Protein 6.1 g/dL (6.4-8.2)
[2023-07-10] MEDS: 0.9 % SODIUM CHLORIDE 1,000 ML 125 ML IV (05:56)
[2023-07-10 06:47] LABS: Bilirubin Urine NEGATIVE (NEGATIVE); Blood Urine NEGATIVE (NEGATIVE); Clarity Urine CLEAR (CLEAR); Color Urine LT. YELLOW (YELLOW); Glucose Urine UA NEGATIVE (NEGATIVE); Ketones Urine NEGATIVE (NEGATIVE); Leukocyte Esterase Urine NEGATIVE (NEGATIVE); Nitrite Urine NEGATIVE (NEGATIVE); Protein Urine NEGATIVE (NEG/TRACE); Specific Gravity Urine <=1.005 (1.005-1.025)
[2023-07-10 06:55] LABS: Urine Microscopic Indicated NO
--- NOTE | 2023-07-10 08:32 | PM.PN ---
Progress Note: Subjective Subjective Interval history: 07/10/23 0830 Walking, pain well controlled, pos flatus. Suspects MANI - future sleep study planned Exam Constitutional Vital Signs, click to edit/add: Last Vital Signs Temp 97.6 F 07/10/23 05:53 Pulse 102 H 07/10/23 07:50 Resp 18 07/10/23 05:53 BP 117/77 07/10/23 05:53 Pulse Ox 94 L 07/10/23 05:53 O2 Del Method Nasal Cannula 07/10/23 05:53 O2 Flow Rate 3 07/10/23 05:53 Common normals: no apparent distress, oriented x3 and alert General appearance: cooperative Orientation/consciousness: Yes awake HENMT Common normals: normocephalic, head/scalp atraumatic and hearing grossly normal bilaterally Eye Common normals: PERRL, EOMs intact bilaterally, conjunctivae normal and no scleral icterus General eye: normal appearance of both eyes Chest Common normals: inspection of chest normal Chest: symmetrical chest wall rise Respiratory Common normals: normal respiratory effort, no use of accessory muscles and clear to auscultation bilaterally Effort & inspection: able to speak in complete sentences Cardio Common normals: regular rate, regular rhythm, S1 normal heart sound, S2 normal heart sound, no murmurs and peripheral pulses 2+ throughout Rate: other (Borderline tachycardia) GI Common normals: Normal to inspection, nondistended, normoactive bowel sounds present, soft to palpation and no hepatosplenomegaly Palpation: tender (leda-incisional, greatest RUQ) Bladder/kidney exam: bladder normal to palpation Extremity Common normals: normal to inspection and no calf tenderness General: no clubbing, no cyanosis and no edema Neuro Common normals: oriented x3, CN's II-XII intact bilaterally, moves all extremities, no focal motor deficits and no sensory deficits noted Sensorium/orientation: awake and alert Psych Common normals: mental status grossly normal Progress Note: Objective Labs Labs: Short CBC 07/10/23 Range/Units 04:29 WBC 17.9 H (4.0-11.0) 10^3/uL Hgb 13.4 L (14.0-18.0) g/dL Hct 40.7 L (42.0-54.0) % Plt Count 123 L (150-450) 10^3/uL BMP 07/10/23 04:29 Sodium 140 Potassium 3.7 Chloride 107 Carbon Dioxide 28.3 BUN 12.0 Creatinine 1.07 Glucose 131 H Calcium 8.5 Liver Function 07/10/23 Range/Units 04:29 Total Bilirubin 1.0 (0.2-1.0) mg/dL AST 28 (15-37) U/L ALT 42 (16-63) U/L Alkaline Phosphatase 77 (46-116) U/L Albumin 2.5 L (3.4-5.0) g/dL Urine 07/10/23 Range/Units 06:00 Urine Color Lt. yellow (YELLOW) Urine Clarity Clear (CLEAR) Urine pH 6.0 (5.0-9.0) Ur Specific [place] <=1.005 A (1.005-1.025) Urine Protein Negative (NEG/TRACE) mg/dL Urine Glucose (UA) Negative (NEGATIVE) mg/dL Progress Note: A&P Assessment and Plan (1) Acalculous cholecystitis: (2) Tachycardia: (3) Hyponatremia: (4) Hypokalemia: (5) Hyperbilirubinemia: (6) Thrombocytopenia: (7) Hypertension:
--- NOTE | 2023-07-10 09:45 | CM.NOTE ---
Rounds made with Dr. Castro. Mr. John stating feels much better today. Potential plan for discharge today if surgery agreeable. Mr. John in agreement.
[2023-07-10] MEDS: ACETAMINOPHEN 500 MG TABLET 1000 MG PO (11:10)
[2023-07-10] MEDS: HYDROXYZINE HCL 25 MG TABLET PO (11:15)
--- NOTE | 2023-07-10 12:14 | PM.GSPN ---
Progress Note: A&P Assessment and Plan (1) Tachycardia: (2) Hyponatremia: (3) Hypokalemia: (4) Hyperbilirubinemia: (5) Thrombocytopenia: (6) Hypertension: (7) Acute gangrenous cholecystitis: Assessment and Plan: doing well; rey drain removed; take ibuprofen or Naproxen as needed for pain; ok for discharge; no lifting > 10 lbs for 4 weeks, may shower, keep drain site covered until it scabs over; f/u next week in the [place] office; call sooner if problems/questions. Subjective Subjective Interval history: POD # 1 s/p LS cholecystectomy for acute gangrenous, hemorrhagic cholecystitis with gallbladder calculus and obstruction of gallbladder; doing well, minimal soreness, controlled with Tylenol; ambulating well, voiding, tolerating diet; no N/V; afebrile. Exam Narrative Exam Narrative: abd: soft, +bs, nondistended, minimal periumbilical ecchymosis; incisions without erythema or drainage; rey with serosanguineous drainage. Constitutional Vital Signs, click to edit/add: Last Vital Signs Temp 97.6 F 07/10/23 05:53 Pulse 97 H 07/10/23 11:48 Resp 18 07/10/23 05:53 BP 117/77 07/10/23 05:53 Pulse Ox 94 L 07/10/23 05:53 O2 Del Method Nasal Cannula 07/10/23 05:53 O2 Flow Rate 3 07/10/23 05:53
--- NOTE | 2023-07-10 12:54 | P.DS_ITS ---
<Statement entered by Tino Castro MD - 07/15/23 08:20> This documentation has been reviewed and approved. Agree with input and plan of care for discharge for this patient. Patient was seen and evaluated. DS: Providers Provider Date of admission: 07/08/23 16:27 Primary care physician: RYLIE MEYER APRN-JACQUELYN Consults: 07/08/23 16:27 Consult to General Surgeon Routine Consulting Provider: Wil Eddy Reason for consultation: acute [place] Has provider been notified: Yes Discharging clinician: Neyda Bray DS: Diagnosis Discharge Diagnosis (1) Acute gangrenous cholecystitis: (2) Tachycardia: (3) Hyponatremia: (4) Hypokalemia: (5) Hyperbilirubinemia: (6) Thrombocytopenia: (7) Hypertension: DS: Summary Hospital Course Hospital Course: The patient was admitted with acute cholecystitis from chronic cholelithiasis with associated leukocytosis and abdominal pain. He was treated with IV antibiotics for broad gram-negative and anaerobic coverage. He was seen in consult by Dr. Eddy, general surgeon, who took him to the OR on 07/09/2023 for a lap cholecystectomy. The patient's postoperative course has been unremarkable. His pain is adequately controlled with OTC preparations, he is producing flatus, and ambulating frequently in the chavis. He is tolerating a full liquid diet. Per Dr. Eddy the patient is okay to discharge home today. His DENICE drain was removed on the day of discharge. He may continue to take ibuprofen or naproxen for pain. He is not to lift more than 10 pounds for 4 weeks and should follow- up with Dr. Eddy next week in the office. No further antibiotics are indicated after definitive treatment with cholecystectomy. The pt's BP was very well controlled without any antihypertensives for the last 24 hrs. We clinically suspect that his chronic, significant pain may have been driving his previous hypertension. We have continued amlodipine, but held his losartan (recently added to med profile) until the pt can follow up with his PCP in 5-7 days to discuss BP management. The pt was also noted to be persistently tachycardic w/ concurrent hyponatremia and hypokalemia. He was treated with IVFs and KCL supplementation and his electrolyte disturbances resolved. His tachycardia improved with these treatments but did not fully resolve until after surgery. Mild hyperbilirubinemia was 2/2 his acute cholecystitis and resolved post operatively. Mild thrombocytopenia was noted on labs and monitored - slightly improved post operatively. A follow up CBC could be obtained in 1 month to re- evaluate thrombocytopenia. He is being discharged home in stable condition. Time Spent with Patient Time attestation: Total time spent providing and/or coordinating discharge services: Time spent: greater than 30 minutes Specific discharge activities: Physical exam, discussion of discharge plan, questions answered. Exam Constitutional Vital Signs, click to edit/add: Last Vital Signs Temp 97.6 F 07/10/23 05:53 Pulse 97 H 07/10/23 11:48 Resp 18 07/10/23 05:53 BP 117/77 07/10/23 05:53 Pulse Ox 94 L 07/10/23 05:53 O2 Del Method Nasal Cannula 07/10/23 05:53 O2 Flow Rate 3 07/10/23 05:53 Common normals: no apparent distress, oriented x3 and alert General appearance: cooperative Orientation/consciousness: Yes awake HENMT Common normals: normocephalic and head/scalp atraumatic Eye Common normals: PERRL, EOMs intact bilaterally, conjunctivae normal and no scleral icterus Neck & C-Spine Common normals: no JVD Respiratory Common normals: normal respiratory effort, no use of accessory muscles and clear to auscultation bilaterally Effort & inspection: able to speak in complete sentences and symmetric chest movement Cardio Common normals: no JVD, regular rate, regular rhythm, S1 normal heart sound, S2 normal heart sound, no murmurs and peripheral pulses 2+ throughout Rate: other (borderline tachycardia) GI Common normals: Normal to inspection, nondistended, normoactive bowel sounds present and soft to palpation Inspection: other (DENICE drain in place w/ scant serosanguinous drng) Palpation: tender (Susan-incisional tenderness) Bladder/kidney exam: bladder normal to palpation Extremity Common normals: normal to inspection, full ROM, normal capillary refill and no pedal edema General: no clubbing and no cyanosis Neuro Common normals: moves all extremities, no focal motor deficits and no sensory deficits noted Speech: speech normal Psych Common normals: mental status grossly normal and activity/motor behavior normal DS: Data Data Completed and Pending Labs on day of discharge: Labs from last 24 hours 07/10/23 07/10/23 06:00 04:29 WBC 17.9 H RBC 4.69 L Hgb 13.4 L Hct 40.7 L MCV 86.8 MCH 28.6 MCHC 32.9 RDW 15.0 Plt Count 123 L MPV 12.2 Neut % (Auto) 94.1 H Lymph % (Auto) 2.5 L [place] % (Auto) 2.7 Eos % (Auto) 0.0 L Baso % (Auto) 0.1 L Neut # (Auto) 16.8 H Lymph # (Auto) 0.5 L Stanley # (Auto) 0.5 Eos # (Auto) 0.0 Baso # (Auto) 0.0 Abs Immat Gran (auto) 0.10 H Imm/Tot Granulo (auto) 0.6 H Sodium 140 Potassium 3.7 Chloride 107 Carbon Dioxide 28.3 Anion Gap 8.4 BUN 12.0 Creatinine 1.07 Est GFR ( Amer) >60 Est GFR (Non-Af Amer) >60 BUN/Creatinine Ratio 11.2 Glucose 131 H Calcium 8.5 Total Bilirubin 1.0 AST 28 ALT 42 Alkaline Phosphatase 77 Total Protein 6.1 L Albumin 2.5 L Globulin 3.6 Albumin/Globulin Ratio 0.7 Amylase 46 Lipase 17.0 Urine Color Lt. yellow Urine Clarity Clear Urine pH 6.0 Ur Specific [place] <=1.005 A Urine Protein Negative Urine Glucose (UA) Negative Urine Ketones Negative Urine Occult Blood Negative Urine Nitrite Negative Urine Bilirubin Negative Urine Urobilinogen 2.0 A Ur Leukocyte Esterase Negative Imaging Chest x-ray: Radiologist's impression: IMPRESSION: No acute infiltrate or evidence of cardiac decompensation. Direct comparison with a previous study may be helpful in determining the chronicity of these findings. CT scan - abdomen: Radiologist's impression: IMPRESSION: 1. Cholelithiasis and suspected mild acute cholecystitis. Consider ultrasound evaluation for verification. 2. Complex 2.6 cm right renal cyst versus mass. Consider follow-up CT abdomen without and with IV contrast to evaluate enhancement characteristics. Alternatively, MRI abdomen could be performed. US - abdomen: Radiologist's impression: IMPRESSION: 1. Cholelithiasis and mild gallbladder distention; while there is no significant gallbladder wall thickening, mild pericholecystic inflammation as seen on recent CT is suspicious for acute cholecystitis. No abnormal biliary dilatation. 2. Right renal cortical lesion contains a nonspecific focus of intracystic nodularity; unclear if this relates to intracystic proteinaceous debris. As per CT exam performed same day, consider follow-up renal mass protocol CT or MRI. 3. Hepatic steatosis. Discharge Plan Discharge Disposition: Home, Self-Care Discharge Medications: Continued amlodipine 5 mg tablet 5 mg PO DAILY naproxen 500 mg tablet 500 mg PO Q12H PRN (Reason: pain) Held losartan 100 mg tablet 100 mg PO DAILY Hold Instructions: Until follow up with PCP regarding BP management. Discontinued lidocaine 5 % adhesive patch,medicated 1 patch topical Q24H PRN (Reason: pain) Rx Instructions: REMOVE AFTER 12 HOURS baclofen 20 mg tablet 20 mg PO BID Activity: resume usual activities as tolerated Diet: advance to your usual diet Patient Instructions: Naproxen (By mouth), Amlodipine (By mouth), Laparoscopic Cholecystectomy (DC) Forms: Portal Instructions Follow Up Appointments: @ 3pm with Dr. Eddy (arrive at 2:45pm) [address] [place] [address] - Dr. Castro's office [phone] - Follow up with PCP in 5-7 days to discuss BP management. Hold Losartan until that appointment.
--- NOTE | 2023-07-13 14:36 | CM.DCFOLLOWU ---
Person spoke with: patient How are you feeling? doing very well How is your pain? no pain Did you understand your discharge instructions? yes Do you have any questions about your discharge instructions? no Were you given any prescriptions at discharge? yes Were you able to get your prescriptions filled? yes Do you understand how to take your medications as ordered? yes Do you have any questions about your follow up appointment and do you plan to keep your follow up appointment? no questions, follow up with PCP and surgeon on Thursday Is there anything else that you would like to discuss? no Questions/Comments/Concerns/Other:
== END 2023-07-10 15:17 | disposition home or self-care (01) | DRG 418 ==
LOC: ER 14:23 → MS 15:05
PROVIDERS: Surgery; Admitting Provider Family Medicine; Emergency Provider Emergency Medicine Emergency Medical Services; PCP Nurse Practitioner Primary Care; Visit Provider Nurse Practitioner
PROC: 0FT44ZZ Resection of Gallbladder, Percutaneous Endoscopic Approach (ICD-10-PCS; principal; 2023-07-09 15:45)
DX: K80.01 Calculus of gallbladder with acute cholecystitis with obstruction (principal); E87.1 Hypo-osmolality and hyponatremia; K82.A1 Gangrene of gallbladder in cholecystitis; D72.829 Elevated white blood cell count, unspecified; I10 Essential (primary) hypertension; R00.0 Tachycardia, unspecified; D69.6 Thrombocytopenia, unspecified; E87.6 Hypokalemia; E80.6 Other disorders of bilirubin metabolism; F41.9 Anxiety disorder, unspecified; Z79.899 Other long term (current) drug therapy; Z83.3 Family history of diabetes mellitus; Z86.16 Personal history of COVID-19; Z82.49 Family history of ischemic heart disease and other diseases of the circulatory system; Z80.9 Family history of malignant neoplasm, unspecified; Z82.5 Family history of asthma and other chronic lower respiratory diseases
CPT/HCPCS: 36415; 71045; 74176; 76705; 80053; 81003; 82150; 83605; 83690; 83735; 83880; 84484; 85025; 85027; 85378; 85610; 85730; 87040; 88304; 93005; 94667; 94668; 94761; 96365; 96366; 96367; 96368; 96375; 99285; J0131; J0295; J0330; J0665; J0696; J1100; J1170; J1290; J1885; J2405; J2543; J2704; J2710; J3010; J3480

== ENCOUNTER 2024-01-18 19:00 | Emergency (ER) | payer BC, SELFPAY ==
[2024-01-18 19:06] VITALS: BP 149/97; PULSE 92; TEMP 36.9; O2SAT 97; BMI 32.6
--- OUTSIDE RECORDS SUMMARY | 2024-01-18 19:06 | XMS_ITS | CCD ---
Author Organization [facility] Care Team Providers Care Burr Bench Operator Name Role Phone RYLIE MEYER Primary Care Unavailable Wil EDDY Attending Unavailable RYLIE MEYER Primary Care Unavailable Tino Castro Referring Unavailable Wil EDDY Attending Unavailable Allergies Allergy Classification Reported Allergen(s) Allergy Type Date of Onset Reaction(s) Facility (1 source) No Known Medication Allergies; Translations: [No Known Medication Allergies] Propensity to adverse reactions (disorder) [facility] Repository Results Test Name Value Interpretation Reference Range Facil ity Ambulatory Visit Summaryon 0 07-15-2023 Ambulatory Visit Summary [facility] :1965 Visit Date:07/15/2023 Ambulatory Visit Instructions Your Diagnosis Acute calculous cholecystitis Your Care Team Attending Physician - Wil EDDY MD Primary Care Physician - RYLIE MEYER CNP This Is Your Medications List amlodipine (amLODIPine 5 mg Tab) baclofen (baclofen 20 mg Tab) lidocaine topical (lidocaine 5% patch) losartan (losartan 100 mg Tab) naproxen (naproxen 500 mg Tab) Procedures Performed Laparoscopic cholecystectomy (07/07/2023). Medications What How Much When Instructions Unchanged amlodipine (amLODIPine 5 mg Tab) 1 Tablets By Mouth Every day Unchanged baclofen (baclofen 20 mg Tab) 1 Tablets By Mouth 2 times a day Unchanged lidocaine topical (lidocaine 5% patch) 1 Patches Topical Every day Unchanged losartan (losartan 100 mg Tab) 1 Tablets By Mouth Every day Unchanged naproxen (naproxen 500 mg Tab) 1 Tablets By Mouth Every 12 hours Medications and Immunizations Administered Not Given influenza virus vaccine, inactivated, Patient Refuses Allergies No Known Allergies No Known Medication Allergies Problems Ongoing - Any problem that you are currently receiving treatment for. Acute calculous cholecystitis Anxiety Noble's palsy HTN (hypertension) Patient Survey You may receive a survey via text or e-mail asking about your office visit. Please share your experience with us by completing your survey. We appreciate your feedback and thank you for choosing us for your care. Normal [facility] Facesheeton 07-15-2023 Facesheet [id number] .00TIFF Normal [facility] General Surgery Office/Clini c Noteon 07-15-2023 General Surgery Office/Clinic Note Chief Complaint post operative follow up HPI Staff 6 day post operative follow up post lap cholecystectomy. Reports minimal discomfort; taking Naproxen PRN. Denies bleeding or drainage. Reports 3-4 day history of diarrhea post surgery which has resolved. History of Present Illness 6 days s/p LS cholecystectomy for acute calculus cholecystitis; doing well, mild soreness controlled with Naproxen; no fevers, no N/V; initial loose stools; now normal; no drainage from incisions; no strenuous activity. Review of Systems PHQ Score Initial Depression Screen Score: 0 SCORE ROS - Provider Constitutional: no fever, no sweats, no weight loss. Eyes: no glasses, no blurred vision, no visual loss. ENMT: no dentures, no hoarseness, no swallowing difficulties, no hearing loss, no ear infection(s), no nose bleeds. Cardiovascular: normal blood pressure, no chest pain, regular heartbeat, no heart murmur. Respiratory: no shortness of breath, no cough, no asthma, no wheezing. Gastrointestinal: no nausea, no vomiting, no diarrhea, no constipation, no blood in stool, no change in bowel habits, no abdominal pain, no hepatitis. Genitourinary: no kidney stones, no urine infection, no dysuria. Musculoskeletal: no pain, no weakness. Skin: no changing moles, no rash, yes skin lumps. Neurologic: no seizures, no epilepsy, no headache. Psychiatric: no emotional or psychiatric problem. Heme/Lymph: no bleeding problems, no anemia, no blood clots, no transfusions. Allergy/Immunologic: no swollen lymph nodes/glands, no IV drug abuse. Other: Additional ROS info: Except as noted in the above Review of Systems and in the History of Present Illness, all other systems have been reviewed and are negative or noncontributory. Physical Exam abd: soft, nontender, nondistended; incisions without erythema or drainage; ecchymoses around umbilicus. Assessment/Plan 1. Acute calculous cholecystitis (K80.00: Calculus of gallbladder with acute cholecystitis without obstruction) doing well, continue no lifting > 10 lbs for 3 weeks; ok to return to work Thursday since no lifting required; call with problems/questions. Follow-up With When Contact Information HEVER MONROE, Wil Cantor, SAM Only if needed [address] [place] [address]- Additional Instructions: Problem List/Past Medical History Ongoing Acute calculous cholecystitis Anxiety Noble's palsy HTN (hypertension) Historical No qualifying data Procedure/Surgical History Laparoscopic cholecystectomy (07/07/2023). Medications amLODIPine 5 mg Tab, 5 mg= 1 tab(s), Oral, Daily baclofen 20 mg Tab, 20 mg= 1 tab(s), Oral, BID lidocaine 5% patch, 1 patch(es), Topical, Daily losartan 100 mg Tab, 100 mg= 1 tab(s), Oral, Daily naproxen 500 mg Tab, 500 mg= 1 tab(s), Oral, q12hr Allergies No Known Allergies No Known Medication Allergies Social History Alcohol - Denies Alcohol Use, 07/15/2023 Substance Abuse - Denies Substance Abuse, 07/15/2023 Tobacco Never (less than 100 in lifetime) Tobacco Use:. Never Smokeless Tobacco Use:., 07/15/2023 Family History Acute myocardial infarction: Father. Diabetes mellitus type 2: Father and Sister. Heart failure: Father. Hypertension: Father and Sister. Immunizations Vaccine Date Status Comments influenza virus vaccine, inactivated - Not Given Patient Refuses [facility] Comment on above: Result Comment: Elec tronically Signed By: HEVER MONROE, Wil Cantor\.br\Date and Time Signed: 07/15/23 16:22 EST Lab Reportson 07-15-2023 Lab Reports [id number]#1.0 0TIFF Normal [facility] Provider Letteron 07-15-2023 Provider Letter July 15, 2023 [facility] [address] [place] [address] : 1965 To Whom It May Concern, The above named person may return to work without restrictions 07/20/2023. Sincerely, Dr. Wil Eddy MD General Surgery [facility] Lab Reportson 07-13-2023 Lab Reports [id number]#1.00 TIFF [facility] Operative Reporton Operative Report [id number]#1.0 0TIFF Normal [facility] Consultation Noteon 07-10-19 24 Consultation Note [id number] 0TIFF [facility] Consultation Note [id number]#1.00 TIFF [facility] Consultation Noteon 07-09-19 Consultation Note [id number]#1.0 0TIFF [facility] Lab Reportson 07-09-2023 Lab Reports [id number] 0TIFF [facility] Lab Reports [id number] 0TIFF [facility] Lab Reports [id number]#1.00 TIFF [facility] Encounters Encounter Date Encounter Type Care Provider Facility Start: 07-15-2023 End: 07-16-2023 ambulatory Wil EDDY Facility:[facility] Start: 07-09-2023 ambulatory RYLIE MEYER Facility:[facility] Start: 07-08-2023 End: 07-09-2023 ambulatory Tino Castro Facility:[id number] Payers Date Payer Category Payer Self-pay 1965 Unknown [id number] 1965 Unknown [id number] Summary Purpose Family History No Family History Records Found Advance Directives No Advanced Directives Records Found Additional Source Comments (unrecognized sect ion and content) No Status Records Found INFORMATION SOURCE (unrecogn ized section and content) DATE CREATED AUTHOR 08/05/2023 [facility] FOR RECORDS PERTAINING TO PATIENTS WHO ARE OR HAVE BEEN ENROLLED IN A CHEMICAL DEPENDENCY/SUBSTANCEABUSE PROGRAM, SOME INFORMATION MAY BE OMITTED. This clinical summary was aggregated from multiple sources. Caution should be exercised in using it in the provision of clinical care. This summary normalizes information from multiple sources, and as a consequence, information in this document may materially change the coding, format and clinical context of patient data. In addition, data may be omitted in some cases. CLINICAL DECISIONS SHOULD BE BASED ON THE PRIMARY CLINICAL RECORDS. [facility]. provides no warranty or guarantee of the accuracy or completeness of information in this document.
--- NOTE | 2024-01-18 19:25 | XR_ITS ---
The [address] [address] Patient Name: EFRA [facility]SE MRN: [id number] date: 1965 Sex: M Assigned Patient Location: ER Current Patient Location: ER Accession/Order Number: [id number] Exam Date: 01/18/2024 19:30 Report Date: 01/18/2024 20:53 At the request of: NATALIIA FELIPE Procedure: XR ankle RT min 3V EXAM: XR ankle RT min 3V HISTORY: The patient is a 58-year-old male, Twisted, pain COMPARISON: None. FINDINGS: The AP view demonstrates a tiny dinah of density within the medial clear space, between the medial talar dome and the tip of the medial malleolus. This could represent a tiny avulsion fracture. There is swelling of the overlying medial soft tissues. No other acute or ununited fractures are seen within or around the ankle joint. The ankle mortise is intact and uniform. The syndesmosis is maintained. XR/XR ankle RT min 3V IMPRESSION: Suspected tiny avulsion fracture of the deltoid ligament. Electronically authenticated by: TRUPTI LÓPEZ Date: 01/18/2024 20:53
--- NOTE | 2024-01-18 19:25 | ED.LOWEXI1 ---
HPI HPI - Extremity Injury (Lower) General Chief Complaint: Extremity Injury, Lower Stated Complaint: lower extremity injury Time Seen by Provider: 01/18/24 19:17 Source: patient Mode of arrival: walk-in Limitations: no limitations History of Present Illness HPI Narrative: 58-year-old male presents to the emergency department for right ankle pain bruising and swelling. He believes that he twisted it when he was walking on some uneven gravel yesterday and he has pain at the medial malleolus of the right ankle. There was some bruising and he was concerned so he came in. He has been able to walk on it and the pain is moderate. He has never broken that ankle before. Related Data Home Medications ?Medication ?Instructions ?Recorded ?Confirmed amlodipine 5 mg tablet 5 mg PO DAILY 07/08/23 01/18/24 losartan 100 mg tablet 100 mg PO DAILY 07/08/23 01/18/24 naproxen 500 mg tablet 500 mg PO Q12H PRN pain 07/08/23 07/08/23 Allergies Allergy/AdvReac Type Severity Reaction Status Date / Time No Known Drug Allergies Allergy Verified 01/18/24 19:06 Opioid HPI Opioid Management Most Recent Pain and Opioid Data: Last Pain Scale 0 07/10/23 12:10 Review of Systems ROS Narrative A ten point review of systems is negative except as noted above. 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) Anxiety ?F41.9 - Anxiety disorder, unspecified (ICD-10) Hypertension ?I10 - Essential (primary) hypertension (ICD-10) Family History (Updated 07/08/23 @ 15:20 by Jael Puga LPN) Father Family history of CHF (congestive heart failure) Family history of diabetes mellitus Family history of hypertension Family history of myocardial infarction Granddaughter Family history of CHF (congestive heart failure) Family history of hypertension Grandmother Family history of cancer Sister Family history of cancer Family history of diabetes mellitus Family history of hypertension Other Family history of COPD (chronic obstructive pulmonary disease) Social History Smoking status: Never smoker Highest level of school completed/degree received: Associate degree: occupational, technical, vocational program Gender Identity: male Exam Narrative Exam Narrative: Nurses note and vital signs reviewed and patient is not hypoxic. General: The patient appears well and in no apparent distress. Patient is resting comfortably on cart. Skin: Warm, dry, no pallor noted. There is no rash noted. Head: Normocephalic, atraumatic Eye: Normal conjunctiva, no drainage Ears, Nose, Mouth, and Throat: oral mucosa is moist. Nares patent. Cardiovascular: Regular Rate and Rhythm Respiratory: Patient is in no distress, no accessory muscle use Back: non-tender GI: Soft and nontender Musculoskeletal: The right ankle is examined. Skin intact. He has tenderness and swelling at the medial malleolus. No tenderness over the lateral malleolus. There is some bruising just inferior to the medial malleolus. Neurological: A&O, normal speech Psychiatric: Cooperative Constitutional Vital Signs, click to edit/add: Last Vital Signs Temp 98.4 F 01/18/24 19:06 Pulse 92 H 01/18/24 19:06 Resp 18 01/18/24 19:06 BP 149/97 H 01/18/24 19:06 Pulse Ox 97 01/18/24 19:06 O2 Del Method Room Air 01/18/24 19:06 Course Vital Signs Vital signs: Vital Signs Temperature 98.4 F 01/18/24 19:06 Pulse Rate 92 H 01/18/24 19:06 Respiratory Rate 18 01/18/24 19:06 Blood Pressure 149/97 H 01/18/24 19:06 Pulse Oximetry 97 01/18/24 19:06 Oxygen Delivery Method Room Air 01/18/24 19:06 Temperature 98.4 F 01/18/24 19:06 Pulse Rate 92 H 01/18/24 19:06 Respiratory Rate 18 01/18/24 19:06 Blood Pressure 149/97 H 01/18/24 19:06 Pulse Oximetry 97 01/18/24 19:06 Oxygen Delivery Method Room Air 01/18/24 19:06 MDM - Extremity Injury (Lower) MDM Narrative Medical decision making narrative: Avulsion fracture is identified on the x-ray by the radiologist. Mihir wrap and air splint were applied, application of these were checked by me and found to be appropriate, he is neurovascular intact. He was offered crutches but does not feel that he needs them. He is referred to podiatry and findings are discussed thoroughly with the patient and his . Differential Diagnosis Differential diagnosis: Likely ankle sprain and strain and ankle fracture Imaging Data Ankle x-ray: Radiologist's impression: ITS Impressions Ankle X-Ray 01/18/24 19:25 IMPRESSION: Suspected tiny avulsion fracture of the deltoid ligament. Electronically authenticated by: TRUPTI LÓPEZ Date: 01/18/2024 20:53 Discharge Plan Discharge Stand Alone Forms: Portal Instructions Chief Complaint: Extremity Injury, Lower Clinical Impression: Avulsion fracture of ankle Patient Disposition: Home, Self-Care Time of Disposition Decision: 21:09 Condition: Good Mode of Transportation: Private Vehicle Prescriptions / Home Meds: No Action amlodipine 5 mg tablet 5 mg PO DAILY losartan 100 mg tablet 100 mg PO DAILY Hold Instructions: Until follow up with PCP regarding BP management. naproxen 500 mg tablet 500 mg PO Q12H PRN (Reason: pain) Print Language: Upper Sorbian Instructions: Ankle Fracture (ED), Avulsion Fracture (ED) Referrals: Markos Arriola NP [Primary Care Provider] - 1 week Chema Gunn DPM [Physician] - 1 week
== END 2024-01-18 21:47 | disposition home or self-care (01) ==
PROVIDERS: Emergency Provider Emergency Medicine; PCP Nurse Practitioner Primary Care
DX: S82.891A Other fracture of right lower leg, initial encounter for closed fracture (principal); X50.1XXA Overexertion from prolonged static or awkward postures, initial encounter
CPT/HCPCS: 73610; 99283